=== PATIENT | male | born 1985 | race Caucasian/White ===

== ENCOUNTER 2017-09-22 11:25 | Emergency (ER) | payer SELFPAY ==
[~2017-09-22] VITALS: Ht 170.2 cm; Wt 87.1 kg
[2017-09-22 11:28] VITALS: Ht 170.2 cm; Wt 87.1 kg
[2017-09-22] MEDS ORDERED: IBUPROFEN 600 MG TAB PO ONE (13:30)
[2017-09-22] MEDS ORDERED: HYDROCODONE/APAP (5/325) TAB PO ONE (13:30)
--- NOTE | 2017-09-22 14:10 | RADRPT ---
PROCEDURE: XR Left Shoulder. CLINICAL INDICATION: Left shoulder pain TECHNIQUE: 3 views of the left shoulder are available for review. COMPARISON: None available FINDINGS: There is no acute fracture. Alignment is normal. Joint spaces are preserved. There is tunneling at the anterior glenoid likely from previous labral repair. The visualized left l katherine is clear. IMPRESSION: 1. No radiographic evidence of acute osseous abnormality. 2. Surgical tunneling at the anterior glenoid likely related to previous labral repair. RPTAT: UU .Tony Michele MD, MD Date Time Electronically viewed and signed by .Tony Michele MD, MD on 09/22/2017 14:09 .K/
[2017-09-22] MEDS ORDERED: IBUP-1542 PO (14:28)
--- NOTE | 2017-09-22 15:07 | ERD ---
ER Documentation Chief Complaint Chief Complaint left shoulder pain x 1 day, had surgery a year ago HPI 32-year-old male comes in with left anterior shoulder pain that occurred 2 days ago after turning his arm towards his back when he was bathing, he has a history of a labral repair a year ago. Patient describes pain in the left anterior shoulder, worse with lifting, sharp, better at rest. ROS All systems reviewed and are negative except as per history of present illness. Medications Home Meds Active Scripts Ibuprofen* (Motrin*) 600 Mg Tab, 600 MG PO Q6, #30 TAB Prov:JOSE CAMPOS PA-C 09/22/17 Allergies Allergies: Coded Allergies: amoxicillin (Verified Allergy, Severe, RASH, 09/22/17) PMhx/Soc History of Surgery: Yes (LEFT SHOULDER) Anesthesia Reaction: No Hx Neurological Disorder: No Hx Respiratory Disorders: No Hx Cardiac Disorders: No Hx Psychiatric Problems: No Hx Miscellaneous Medical Probl: No Hx Alcohol Use: No Hx Substance Use: No Hx Tobacco Use: Yes (VAPE) Smoking Status: Current every day smoker Physical Exam Vitals Vital Signs Date Time Temp Pulse Resp B/P Pulse Ox O2 Delivery O2 Flow Rate FiO2 09/22/17 11:28 98.1 80 18 136/97 96 Physical Exam General: Well-developed, well-nourished. The patient appears in no acute distress. HEENT: Head is normocephalic, atraumatic. No scleral icterus. Neck: Supple. Nontender. Lungs: Clear to auscultation. Normal air movement. Heart: Regular rate and rhythm. S1 and S2 are normal. No murmurs, gallops, or rubs. Abdomen: Nondistended. Extremities: Scar over the left anterior shoulder, patient has limited range of motion with shoulder abduction, no bony deformities Neurologic: Alert and oriented 3. No focal deficits. Normal speech and gait. Skin: Normal turgor. No rash or lesions. Results 24 hrs Current Medications Medications (Trade) Dose Ordered Sig/Chen Route PRN Reason Start Time Stop Time Status Last Admin Dose Admin Acetaminophen/ Hydrocodone Bitart ([place] (5/325)) 1 tab ONCE ONCE PO 09/22/17 13:30 09/22/17 13:32 DC Ibuprofen (Motrin) 600 mg ONCE ONCE PO 09/22/17 13:30 09/22/17 13:31 DC 09/22/17 13:31 DIAGNOSTIC IMAGING REPORT Patient: ÁNGEL PARADA : 1985 Age: 32 Sex: M MR #: [id number] DOS: 09/22/17 1323 Ordering MD: JOSE CAMPOS PA-C Location: [facility] Room/Bed: PROCEDURE: XR Left Shoulder. CLINICAL INDICATION: Left shoulder pain TECHNIQUE: 3 views of the left shoulder are available for review. COMPARISON: None available FINDINGS: There is no acute fracture. Alignment is normal. Joint spaces are preserved. There is tunneling at the anterior glenoid likely from previous labral repair. The visualized left lung is clear. IMPRESSION: 1. No radiographic evidence of acute osseous abnormality. 2. Surgical tunneling at the anterior glenoid likely related to previous labral repair. RPTAT: UU .Tony Michele MD, MD Date Time Electronically viewed and signed by .Tony Michele MD, MD on 09/22/2017 14: 09 .K/ CC: JOSE CAMPOS PA-C Procedures/MDM ED COURSE: Patient was given ibuprofen for pain, and his left shoulder was placed in a sling. MEDICAL DECISION MAKIN-year-old male comes in with left-sided shoulder pain, no acute fracture, dislocation seen, x-rays are normal. The patient states that his labral repair was done in [place], patient will be advised to follow-up with orthopedics outpatient, may need further evaluation MRI which may be done outpatient basis. Departure Diagnosis: Primary Impression: Shoulder injury Condition: Good Patient Instructions: Shoulder Sprain Additional Instructions: furniture manager: YOU HAVE A MEDICAL CONDITION WHICH REQUIRES YOU TO SEE A SPECIALIST WITHIN THE NEXT 1 WEEK. PLEASE FOLLOW UP WITH YOUR PRIMARY PHYSICIAN FOR REFFERAL.IF YOU DO NOT HAVE A PRIMARY CARE PHYSICIAN AND/OR YOU CAN NOT AFFORD TO SEE A PHYSICIAN THE FOLLOWING RESOURCES HAVE BEEN SUPPLIED TO YOU. IT IS YOUR RESPONSIBILITY TO BE SEEN BY THE SPECIALIST JOSE CAMPOS PA-C Sep 22, 2017 15:07
== END 2017-09-22 15:07 | disposition home or self-care (01) ==
LOC: FTE 11:25
DX: S49.92XA Unspecified injury of left shoulder and upper arm, initial encounter (principal); F17.210 Nicotine dependence, cigarettes, uncomplicated; X58.XXXA Exposure to other specified factors, initial encounter; Y92.002 Bathroom of unspecified non-institutional (private) residence as the place of occurrence of the external cause
CPT/HCPCS: 73030